=== PATIENT | female | born 1965 | race Asian ===

== ENCOUNTER 2017-02-21 12:53 | Emergency (ER) | payer OTHER ==
[~2017-02-21] VITALS: Ht 167.6 cm; Wt 54.4 kg
[2017-02-21] MEDS ORDERED: HYDROCODONE-AP1 EAC6 PO (13:57)
[2017-02-21] MEDS ORDERED: ZOFRAN ODT4 M1 PO (13:58)
[2017-02-21 14:03] VITALS: BP 115/69
== END 2017-02-21 14:15 | disposition home or self-care (01) ==
LOC: ER 12:53
DX: T36.1X5A Adverse effect of cephalosporins and other beta-lactam antibiotics, initial encounter (principal); T39.1X5A Adverse effect of 4-Aminophenol derivatives, initial encounter; T36.4X5A Adverse effect of tetracyclines, initial encounter; Y92.89 Other specified places as the place of occurrence of the external cause; R11.2 Nausea with vomiting, unspecified

== ENCOUNTER 2017-02-21 23:58 | Observation (INO) | payer OTHER ==
[~2017-02-21] VITALS: Ht 167.6 cm; Wt 54.4 kg
[~2017-02-21 23:58] MED LIST: HYDROCODONE-AP1 EAC6 PO; ZOFRAN ODT4 M1 PO
[2017-02-22 00:01] VITALS: BP 107/73
[2017-02-22 01:34] LABS: BASOPHILS 0.6 % (0.0-2.0); EOSINOPHILS 1.1 % (0.0-3.0); HEMATOCRIT 42.2 % (37.0-47.0); HEMOGLOBIN 14.9 gm/dL (12.0-15.0); LYMPHOCYTES 36.7 % (24.0-44.0); MCH 30.6 pg (26.0-34.0); MCHC 35.3 g/dL (28.0-37.0); MCV 86.8 fL (80.0-100.0); MONOCYTES 5.2 % (1.0-8.0); PLATELET COUNT 139 thou/uL (150-400); POLYS 56.4 % (36.0-66.0); RBC 4.87 mil/uL (4.20-5.00); RDW 12.8 % (10.5-14.5); WBC 3.6 thou/uL (4.0-11.0)
[2017-02-22 01:35] LABS: MANUAL DIFF NO
[2017-02-22 01:42] LABS: CALCIUM 9.3 mg/dL (8.5-10.1); CREATININE 0.8 mg/dL (0.6-1.0); POTASSIUM 3.6 mmol/L (3.5-5.1)
[2017-02-22 01:47] LABS: ALBUMIN 4.1 g/dL (3.4-5.0); TOTAL BILIRUBIN 1.2 mg/dL (<0.1-1.0); TOTAL PROTEIN 7.8 g/dL (6.4-8.2)
[2017-02-22 06:51] VITALS: BP 151/96
[2017-02-22 07:15] VITALS: BP 106/74
[2017-02-22 15:30] VITALS: BP 90/53
[2017-02-23 04:05] VITALS: BP 104/74
[2017-02-23 07:10] VITALS: BP 96/64
[2017-02-23] MEDS ORDERED: CEPHALEXIN 500500 M3 PO (10:50)
[2017-02-23] MEDS ORDERED: TRAMADOL 50 MG50 MG PO (10:51)
[2017-02-23] MEDS ORDERED: PANTOPRAZOLE SO40 M1 PO (10:51)
[2017-02-23 11:40] VITALS: BP 96/64
[2017-02-23 12:03] LABS: URINE BILIRUBIN NEGATIVE (Negative); URINE BLOOD NEGATIVE (Negative); URINE COLOR YELLOW; URINE GLUCOSE-RANDOM* NEGATIVE (Negative); URINE KETONES 1+ (Negative); URINE LEUKOCYTES-REFLEX 1+ (Negative); URINE PROTEIN (DIPSTICK) NEGATIVE (Negative); URINE UROBILINOGEN 0.2 E.U./dl (0.2-1.0)
[2017-02-23 12:22] LABS: CASTS None Seen /LPF (None Seen); CRYSTALS None Seen /LPF (None Seen); SQUAMOUS 4-10 Moderate /LPF (0-3)
[2017-02-23 12:23] LABS: URINE RBC 0-2 Rare /HPF (0-2); URINE WBC-REFLEX 0-5 Rare /HPF (0-5)
[2017-02-23 20:00] VITALS: BP 108/54
[2017-02-24 04:05] VITALS: BP 100/60
[2017-02-24 07:38] VITALS: BP 89/52
[2017-02-24 08:00] VITALS: BP 96/64
[2017-02-24 09:11] VITALS: BP 96/64
[2017-02-24 09:14] VITALS: BP 96/64
[2017-02-24 09:55] VITALS: BP 96/64
== END 2017-02-24 09:46 | disposition home or self-care (01) ==
LOC: ER 23:58 → 5S 02-22 05:59 → EROBS 02-22 05:59 → 5S 02-22 07:54
PROVIDERS: Emergency Medicine
DX: K29.00 Acute gastritis without bleeding (principal); E86.0 Dehydration; E87.6 Hypokalemia; K08.89 Other specified disorders of teeth and supporting structures

== ENCOUNTER 2017-11-13 22:35 | Emergency (ER) | payer OTHER ==
[~2017-11-13] VITALS: Ht 165.1 cm; Wt 57.1 kg
[~2017-11-13 22:35] MED LIST changes: +CEPHALEXIN 500500 M3 PO; +PANTOPRAZOLE SO40 M1 PO; +TRAMADOL 50 MG50 MG PO
[2017-11-14] MEDS ORDERED: HYDROCODONE-AP1 EAC6 PO (00:34)
[2017-11-14 01:55] VITALS: BP 114/71
== END 2017-11-14 01:58 | disposition home or self-care (01) ==
LOC: ER 22:35
DX: S52.501A Unspecified fracture of the lower end of right radius, initial encounter for closed fracture (principal); W19.XXXA Unspecified fall, initial encounter; Y93.89 Activity, other specified; Y92.89 Other specified places as the place of occurrence of the external cause; Y99.0 Civilian activity done for income or pay